=== PATIENT | male | born 1965 | race Caucasian/White ===

== ENCOUNTER 2017-04-19 15:54 | Emergency (ER) | payer BC ==
[~2017-04-19 15:54] MED LIST: AMB5 PO; PRIN10 PO; X5 PO
== END 2017-04-19 18:27 | disposition home or self-care (01) ==
LOC: ER 15:54
DX: M79.672 Pain in left foot (principal); Z88.0 Allergy status to penicillin; Z79.899 Other long term (current) drug therapy
CPT/HCPCS: 73630-LT; 99283